=== PATIENT | female | born 1945 | race Asian ===

== ENCOUNTER 2025-02-22 12:06 | Emergency (ER) | payer MEDICARE, OTHER, SELFPAY ==
[2025-02-22 12:18] VITALS: BP 164/84
[2025-02-22 12:42] LABS: % Basophils 1.6 % (0-2); % Eosinophils 2.4 % (0-6); % Immature Granulocytes 0.2 % (0-0.5); % Lymphocytes 31.2 % (20.5-51.1); % Monocytes 10.1 % (1.7-9.3); % Neutrophils 54.5 % (42.2-75.2); Absolute Basophils 0.1 10^3/uL (0-0.2); Absolute Eosinophils 0.1 10^3/uL (0-0.7); Absolute Lymphocytes 1.6 10^3/uL (1.2-3.4); Absolute Monocytes 0.5 10^3/uL (0.1-0.6); Absolute Neutrophils 2.8 10^3/uL (1.4-6.5); Hematocrit 42.9 % (37.0-47.0); Hemoglobin 14.4 g/dL (12.0-16.0); Mean Corp Hgb Conc. 33.6 g/dL (33.0-37.0); Mean Corpuscular Hgb 32.1 pg (27.0-31.0); Mean Corpuscular Volume 95.5 fL (81.0-99.0); Mean Platelet Volume 9.5 fL (7.4-10.4); Nucleated Red Blood Cells % 0 %; Platelet Count 184 10^3/uL (130-400); Red Blood Cell Count 4.49 10^6/uL (4.20-5.40); Red Cell Dist. Width 12.5 % (11.5-14.5); White Blood Cell Count 5.1 10^3/uL (4.8-10.8)
[2025-02-22 12:53] LABS: ALT (SGPT) 16 U/L (0-35); AST (SGOT) 29 U/L (14-36); Albumin 5.1 g/dl (3.5-5.0); Alkaline Phosphatase 44 U/L (38-126); Blood Urea Nitrogen 13 mg/dl (7-17); Calcium 9.4 mg/dl (8.4-10.2); Carbon Dioxide 28 mmol/L (22-30); Chloride 109 mmol/L (98-107); Glucose 103 mg/dl (70-99); Potassium 3.9 mmol/L (3.5-5.1); Sodium 142 mmol/L (135-145); Total Bilirubin 0.7 mg/dl (0.2-1.3); Total Protein 7.9 g/dl (6.3-8.2); eGFR > 60.00
[2025-02-22 12:57] VITALS: BMI 22.4
[2025-02-22 13:03] LABS: Urine Albumin Negative (Neg - Trace); Urine Bilirubin Negative (Negative); Urine Character Clear (Clear); Urine Color Yellow; Urine Glucose Negative (Negative); Urine Ketone Negative (Negative); Urine Leukocyte Negative (Negative); Urine Nitrite Negative (Negative); Urine Occult Blood Negative (Negative); Urine Urobilinogen Negative (Neg - 1+); Urine pH 6.5 (5.0-9.0)
[2025-02-22 13:25] LABS: Lipase 168 U/L (23-300)
--- NOTE | 2025-02-22 13:38 | ED.GENMED ---
History of Present Illness
General
Chief Complaint: Abdominal Symptoms
Time Seen by Provider: 02/22/25 12:52
History of Present Illness
History of Present Illness:
79-year-old female presents the emergency department for evaluation of dark stool that has been ongoing for the past several days. She notes that she was previously on 81 mg aspirin and discontinued this out of concern for a GI bleed. This morning
she noted that the stool became red however she notes that she was eating beets and large volume yesterday. She began taking pantoprazole 10 days ago but switched to Pepcid this morning because she felt it helped her pain better. She is not on any
other blood thinners
Past History
Past History
ED Past Medical History: Other (Diverticulosis)
ED Past Surgical History: None
Social History
Tobacco: Non-smoker
Alcohol: None
Review of Systems
Review of Systems
Allergies reviewed?: Yes
All Other Systems: ROS reviewed and negative except as documented in HPI and ROS
Phy Exam
Physical Exam
Physical Exam:
GEN: Well appearing, NAD, WDWN
HEENT: Oral mucosa moist, no scleral icterus
Cardiac: Regular rate
Lung: No respiratory distress, no tachypnea
Rectal: [place] stool in the rectal vault, weakly heme positive
MSK: No gross deformity or injuries
Skin: Good color, no pallor or jaundice, no rashes
Neuro: AO x3, moves all extremities freely
Psych: Calm, cooperative
Course
Orders/Labs/Results
Orders:
Orders
02/22/25 12:30
Complete Blood Count/With Diff Urgent
Comprehensive Metabolic Panel Urgent
Lipase Urgent
02/22/25 12:38
Add On- LAB Urgent
Tests Added?: lipase
02/22/25 12:47
Urinalysis Reflex To Culture Urgent
Date Specimen was Collected: 02/22/25
Time Specimen was Collected: 12:41
Abnormal Lab Results
02/22/25
12:30
MCH 32.1 H pg
(27.0-31.0)
Monocytes % 10.1 H %
(1.7-9.3)
Chloride 109 H mmol/L
(98-107)
Creatinine 0.5 L mg/dL
(0.6-1.0)
Glucose 103 H mg/dl
(70-99)
Albumin 5.1 H g/dl
(3.5-5.0)
02/22/25 12:30
02/22/25 12:30
Vital Signs
Initial and Last Documented VS:
Initial Vital Signs
Temp Pulse Resp BP Pulse Ox
97.8 F 59 16 164/84 96
02/22/25 12:18 02/22/25 12:18 02/22/25 12:18 02/22/25 12:18 02/22/25 12:18
Last Documented Vital Signs
Temp Pulse Resp BP Pulse Ox
97.8 F 59 16 164/84 96
02/22/25 12:18 02/22/25 12:18 02/22/25 12:18 02/22/25 12:18 02/22/25 12:18
MDM/Problems Addressed
MDM/Problems Addressed:
Case was discussed with gastroenterology, at this time low suspicion for upper GI bleed given trace heme positive stool and normal BUN with normal hemoglobin. The pink stool is most likely from dietary intake of beets. She will be discharged home
to outpatient GI follow-up and will continue PPIs
*Critical Care Note
Total Time (30-74mins, 75-104mins- exclusive of procedures): Not Applicable
ED Attending Note
-
Portions of this chart may have been created with voice recognition software.� Occasional wrong word or��sound alike� substitutions may have occurred due to the inherent limitations of voice recognition software.
Discharge Plan
Departure
Patient Disposition: Home (Routine Discharge)
Date of Disposition: 02/22/25
Time of Disposition: 13:38
Patient with high blood pressure during this ER visit?: No
Discharge Problem:
Dark stools
Instructions: Abdominal Pain
Prescriptions:
No Action
multivitamin Tablet
1 tab PO DAILY
melatonin 3 mg Tablet
3 mg PO HS PRN (Reason: sleep)
amlodipine 5 mg tablet
5 mg PO DAILY
calcium carbonate 500 mg calcium (1,250 mg) Tablet
500 mg PO DAILY
ascorbic acid (vitamin C) 500 mg Tablet
500 mg PO DAILY
propranolol 80 mg capsule,extended release 24hr
80 mg PO DAILY
losartan 25 mg tablet
25 mg PO QPM
aspirin 81 mg Tablet,Chewable
81 mg PO Q72H PRN (Reason: heart prevention)
Rx Instructions:
patient states 3x a week randomly
B-complex with vitamin C Tablet
1 tab PO DAILY
coenzyme Q10 [CoQ-10] 100 mg Capsule
100 mg PO DAILY
cyclosporine [Restasis] 0.05 % Dropperette
1 drp BOTH EYES Q12H
cholecalciferol (vitamin D3) 25 mcg (1,000 unit) Tablet
25 mcg PO DAILY
Prolia 60 mg/mL Syringe
60 mg SC [id number]
Rx Instructions:
last dose ~3 mos ago
rxaorkvp-saku-fiblb-oreg-capry 100 mg-150 mg- 50 mg-150 mg Capsule
1 cap PO DAILY
calcium polycarbophil [Fiber-Tabs] 625 mg tablet
1,250 mg PO DAILY Qty: 10 0RF
Rx Instructions:
ANY fiber tab is fine
polyethylene glycol 3350 [Miralax] 17 gram/dose powder
4 g PO DAILY Qty: 119 0RF
Rx Instructions:
over the counter
Referrals:
Jennifer Rocha MD [Family Provider] -
Activity Restrictions/Additional Instructions:
Take your pantoprazole for a total of 2 weeks (including the previous 10 days)
You may continue the pepcid as needed
Follow up with GI
Interventions
Interventions:
*Risk Screen - Suicide Last Done: 02/22/25 13:05
*General Assessment Last Done: 02/22/25 13:05
*Neglect/Abuse Screening Last Done: 02/22/25 13:05
*ED- Fall Risk Assessment Last Done: 02/22/25 13:05
*Nursing Disposition Last Done: 02/22/25 13:51
CQ-Kmbaht-Mveqxwmwhf Assessment Last Done: 02/22/25 12:52
Discharge Date and Time
Discharge Date/Time: 02/22/25 13:52
Print Language: NEPALI
== END 2025-02-22 13:52 | disposition home or self-care (01) ==
LOC: EMR 12:06
PROVIDERS: Emergency Medicine; EMERGENCY PHYSICIAN Emergency Medicine; FAMILY PHYSICIAN Internal Medicine Gastroenterology
DX: K92.1 Melena (principal)
CPT/HCPCS: 99283; 80053; 81003; 83690; 85025

== ENCOUNTER 2025-06-08 06:21 | Day surgery (SDC) | payer MEDICARE, OTHER, SELFPAY | END 2025-06-08 11:57 | disposition home or self-care (01) | LOC: GI 06:21 | PROVIDERS: ATTENDING PHYSICIAN Internal Medicine Gastroenterology | DX: Z12.11 Encounter for screening for malignant neoplasm of colon (principal); D12.0 Benign neoplasm of cecum; D12.3 Benign neoplasm of transverse colon; K63.5 Polyp of colon; K57.30 Diverticulosis of large intestine without perforation or abscess without bleeding; K56.609 Unspecified intestinal obstruction, unspecified as to partial versus complete obstruction; K64.8 Other hemorrhoids; K29.80 Duodenitis without bleeding; K26.4 Chronic or unspecified duodenal ulcer with hemorrhage; R14.0 Abdominal distension (gaseous); Z86.0100 Personal history of colon polyps, unspecified | CPT/HCPCS: 45385; 45380; 43239; 88305; 88342 ==